=== PATIENT | male | born 1955 | race Caucasian/White ===

== ENCOUNTER 2019-02-15 16:59 | Emergency (ER) | payer SELFPAY ==
[~2019-02-15] VITALS: Ht 182.9 cm; Wt 75.0 kg
[2019-02-15 17:54] VITALS: BP 161/84
== END 2019-02-15 20:06 | disposition home or self-care (01) ==
LOC: ED 20:00
DX: S72.144A Nondisplaced intertrochanteric fracture of right femur, initial encounter for closed fracture (principal); S50.812A Abrasion of left forearm, initial encounter; W01.0XXA Fall on same level from slipping, tripping and stumbling without subsequent striking against object, initial encounter; Y93.89 Activity, other specified; Y92.410 Unspecified street and highway as the place of occurrence of the external cause; Y99.8 Other external cause status
CPT/HCPCS: 73523; 90471; 90715; 99283